=== PATIENT | male | born 1955 | race Caucasian/White ===

== ENCOUNTER 2018-06-04 10:13 | Emergency (ER) | payer OTHER, SELFPAY ==
[2018-06-04 10:37] VITALS: BP 189/95; PULSE 90; RESP 14; TEMP 36.2; O2SAT 96
--- NOTE | 2018-06-04 10:40 | DI.RAD.S_ITS ---
PROCEDURE: XR HAND LT MIN 3V INDICATIONS: left thumb injury TECHNIQUE: 3 views of the hand(s) acquired. COMPARISON: None. FINDINGS: Bones: Fracture of the distal tuft of the thumb. IMPRESSION: Thumb distal tuft fracture. Dictated by: Charlie Lin M.D. on 06/04/2018 at 11:41 Approved by: Charlie Lin M.D. on 06/04/2018 at 11:43
[2018-06-04] MEDS: TET,DIPH,PERTUSS(ACELL),VAC/PF 0.5 ML SYRINGE IM (10:56)
[2018-06-04 11:36] VITALS: BP 145/85; PULSE 71; RESP 20; O2SAT 93
--- NOTE | 2018-06-04 11:38 | ED.UPPEXIN ---
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 Patient states he had a glove on the globe was pulled off. He has a lacerations to both sides of the thumb. Patient does not have any numbness or weakness. He is able to flex and straighten. Patient does not know his tetanus up-to-date. He denies any major medical issues. He does not take any aspirin regularly or any blood thinners. States he used to take medication for blood pressure. Related Data Home Medications Medication Instructions Recorded Confirmed naproxen sodium [Aleve] 2 tab PO QDAY #0 06/05/17 05/03/18 Previous Rx's Medication Instructions Recorded amlodipine 5 mg tablet 5 mg PO QDAY #90 tab 05/03/18 cephalexin [Keflex] 500 mg PO QID #40 cap 06/04/18 Allergies Allergy/AdvReac Type Severity Reaction Status Date / Time No Known Drug Allergies Allergy Verified 05/03/18 14:28 Review of Systems Review of Systems All systems reviewed & are unremarkable except as noted in HPI and below Constitutional Denies weakness Musculoskeletal Reports as per HPI, Denies limited range of motion, Denies numbness, Denies stiffness and Denies tingling Integumentary/Breasts Denies rash, Denies unusual bruising and Reports wounds (Laceration x2) Neurologic Denies numbness, Denies tingling and Denies weakness [facility] Medical History Hyperlipidemia (Chronic) Hypertension (Chronic) Skin cancer (Chronic ~2009) Surgical History History of tonsillectomy (Resolved) Family History Mother Age: 86 Diabetes mellitus Father Cancer Tobacco use Social History Smoking Status: Never smoker Exam Narrative Exam Narrative: GENERAL: Alert and oriented x three, well-nourished, well-appearing male in mild distress. HEENT: Head normocephalic, atraumatic, EOMI, pupils reactive, face symmetric, moist mucous membranes NECK: Supple, full range of motion CARDIOVASCULAR: Regular rate and rhythm without murmurs, rubs or gallops. RESPIRATORY: Breath sounds equal bilaterally, no wheezes rales or rhonchi. EXTREMITIES: Normal range of motion, patient has a 1/2 cm laceration with avulsion of the central portion of skin on the distal pad of the thumb. Patient has good sensation at the end. He has cap refill less than 2 sec. Able to fully flex the thumb at all joints and straighten. Patient also has a laceration over the dorsum of the 1st metacarpal joint that is 2.1 cm and in AC shape. Goes into the subcutaneous but no tendon involvement is noted. Patient also has full range of motion with no deformity. Patient has 2+ radial pulse. He has no other laceration or injuries noted to the hand. NEUROLOGICAL: Cranial nerves II through XII grossly intact. Moving all extremities. Normal gait. SKIN: Warm, dry, no petechiae, no rashes or lesions. Initial Vital Signs Initial Vital Signs: Vital Signs Temperature 97.1 F L 06/04/18 10:37 Pulse Rate 90 06/04/18 10:37 Respiratory Rate 14 06/04/18 10:37 Blood Pressure 189/95 H 06/04/18 10:37 Pulse Oximetry 96 06/04/18 10:37 Procedures Laceration Repair Laceration 1: Site: hand (Left thumb, dorsum over the joint) Size (cm): 2.1 Description: flap and contaminated Depth: simple, single layer Local Anesthetic: lidocaine 1% Amount of anesthesia used (mL): 2 Pre-repair: wound explored, irrigated extensively and deep structures intact Skin layer closed with: nylon Size (cm): 4-0 Number of sutures: 7 Laceration 2: Site: hand (Left hand pad of the thumb) Size (cm): 2 Description: linear (With avulsion of central strip of skin) Depth: simple, single layer Local Anesthetic: lidocaine 1% Amount of anesthesia used (mL): 1.5 Pre-repair: wound explored, irrigated extensively, deep structures intact and wound margins revised Skin layer closed with: nylon Size (cm): 4-0 Number of sutures: 3 Technique: simple, interrupted Course Orders Ordered: ED Orders 06/04/18 10:40 XR hand LT min 3V Stat Discontinued Medications Acetaminophen (Tylenol) 650 mg PO NOW ONE Stop: 06/04/18 12:33 Last Admin: 06/04/18 12:58 Dose: 650 mg Cephalexin HCl (Keflex) 500 mg PO NOW ONE Stop: 06/04/18 12:33 Last Admin: 06/04/18 12:58 Dose: 500 mg Diphtheria/Tetanus/Acell Pertussis (Adacel) 0.5 ml IM .ONCE ONE Stop: 06/04/18 10:39 Last Admin: 06/04/18 10:56 Dose: 0.5 ml Vital Signs - 8 hr 06/04/18 10:37 06/04/18 11:36 06/04/18 12:43 Temperature 97.1 F L Pulse Rate 90 71 77 Respiratory Rate 14 20 19 Blood Pressure 189/95 H Blood Pressure [Right Arm] 145/85 H 181/80 H Pulse Oximetry 96 93 98 [facility] - Extremity Injury (Upper) Imaging Data hand xray: Radiologist's impression: [place] [address] XRay Report Signed Patient: Roger Briones MR#: [id number] : 1955 Acct:[id number] Age/Sex: 62 / M Date of Service: 06/04/18 Loc: ED Accession Number: [id number] Procedure: XR hand LT min 3V Ordering Provider: Daina Sierra D.O. PROCEDURE: XR HAND LT MIN 3V INDICATIONS: left thumb injury TECHNIQUE: 3 views of the hand(s) acquired. COMPARISON: None. FINDINGS: Bones: Fracture of the distal tuft of the thumb. IMPRESSION: Thumb distal tuft fracture. Dictated by: Charlie Lin M.D. on 06/04/2018 at 11:41 Approved by: Charlie Lin M.D. on 06/04/2018 at 11:43 [facility] Narrative Medical decision making narrative: Patient's imaging shows a distal tuft fracture. Patient is technically an open fracture based on laceration the end of the thumb. Was started on Keflex orally. Patient lacerations were sewn. On the distal thumb he was missing a portion of the skin so is unable to completely close but was drawn fairly close together. Patient is aware that he will need to have some closure by secondary intention. He was also placed in a splint to help prevent any flexion at the proximal joint. Plan to follow-up, was given clear instructions about signs and risks of infection and reasons to return. Patient's tetanus was updated in the ED. He will plan to take Aleve at home he defers any narcotic pain. Patient sees Dr. Pandya and plan to follow up to remove. Discharge Plan Departure Patient Disposition: Home Clinical Impression: Fracture of distal phalanx of finger, Laceration of finger Discharge Date/Time: 06/04/18 13:32 Interventions: ED Discharge Assessment Last Done: 06/04/18 13:27 Instructions: DI for Laceration Repair -- Finger Activity Restrictions/Additional Instructions: Wound Care: Keep wound(s) clean and dry. Wash daily with soap and water only. Continue using split until cleared by your physician Do not use over the counter products (alcohol or peroxide)on the wounds unless instructed by a physician. If wound condition worsens (increased/expanding redness, developing fluid blisters, or worsening pain), either contact your doctor for an urgent re-assessment , or return to the Emergency Department. Return to the Emergency Department for any new or worsening symptoms. Return to the ED, urgent care, or vist a primary care doctor for removal or suture or marta in 7-10 days. Return if fever greater than 100.4 Fahrenheit, increased swelling, increasing pain or worsening symptoms such as increased discharge or spreading redness. Loss of sensation, new weakness, numbness, pallor or cyanosis. Prescriptions: New cephalexin [Keflex] 500 mg capsule 500 mg PO QID Qty: 40 RF: 0 No Action naproxen sodium [Aleve] 220 MG tablet 2 tab PO QDAY Qty: 0 RF: 0 amlodipine [Norvasc] 5 mg tablet 5 mg PO QDAY Qty: 90 RF: 3 Referrals: Jesús Deluca MD [Primary Care Provider] - Rhiannon Pandya DO [Physician] - Renetta Vazquez MD [Physician] -
--- NOTE | 2018-06-04 12:41 | ED_ITS ---
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 Patient states he had a glove on the globe was pulled off. He has a lacerations to both sides of the thumb. Patient does not have any numbness or weakness. He is able to flex and straighten. Patient does not know his tetanus up-to-date. He denies any major medical issues. He does not take any aspirin regularly or any blood thinners. States he used to take medication for blood pressure. Related Data Home Medications Medication Instructions Recorded Confirmed naproxen sodium [Aleve] 2 tab PO QDAY #0 06/05/17 05/03/18 Previous Rx's Medication Instructions Recorded amlodipine 5 mg tablet 5 mg PO QDAY #90 tab 05/03/18 cephalexin [Keflex] 500 mg PO QID #40 cap 06/04/18 Allergies Allergy/AdvReac Type Severity Reaction Status Date / Time No Known Drug Allergies Allergy Verified 05/03/18 14:28 Review of Systems Review of Systems All systems reviewed & are unremarkable except as noted in HPI and below Constitutional Denies weakness Musculoskeletal Reports as per HPI, Denies limited range of motion, Denies numbness, Denies stiffness and Denies tingling Integumentary/Breasts Denies rash, Denies unusual bruising and Reports wounds (Laceration x2) Neurologic Denies numbness, Denies tingling and Denies weakness [facility] Medical History Hyperlipidemia (Chronic) Hypertension (Chronic) Skin cancer (Chronic ~2009) Surgical History History of tonsillectomy (Resolved) Family History Mother Age: 86 Diabetes mellitus Father Cancer Tobacco use Social History Smoking Status: Never smoker Exam Narrative Exam Narrative: GENERAL: Alert and oriented x three, well-nourished, well- appearing male in mild distress. HEENT: Head normocephalic, atraumatic, EOMI, pupils reactive, face symmetric, moist mucous membranes NECK: Supple, full range of motion CARDIOVASCULAR: Regular rate and rhythm without murmurs, rubs or gallops. RESPIRATORY: Breath sounds equal bilaterally, no wheezes rales or rhonchi. EXTREMITIES: Normal range of motion, patient has a 1/2 cm laceration with avulsion of the central portion of skin on the distal pad of the thumb. Patient has good sensation at the end. He has cap refill less than 2 sec. Able to fully flex the thumb at all joints and straighten. Patient also has a laceration over the dorsum of the 1st metacarpal joint that is 2.1 cm and in AC shape. Goes into the subcutaneous but no tendon involvement is noted. Patient also has full range of motion with no deformity. Patient has 2+ radial pulse. He has no other laceration or injuries noted to the hand. NEUROLOGICAL: Cranial nerves II through XII grossly intact. Moving all extremities. Normal gait. SKIN: Warm, dry, no petechiae, no rashes or lesions. Initial Vital Signs Initial Vital Signs: Vital Signs Temperature 97.1 F L 06/04/18 10:37 Pulse Rate 90 06/04/18 10:37 Respiratory Rate 14 06/04/18 10:37 Blood Pressure 189/95 H 06/04/18 10:37 Pulse Oximetry 96 06/04/18 10:37 Procedures Laceration Repair Laceration 1: Site: hand (Left thumb, dorsum over the joint) Size (cm): 2.1 Description: flap and contaminated Depth: simple, single layer Local Anesthetic: lidocaine 1% Amount of anesthesia used (mL): 2 Pre-repair: wound explored, irrigated extensively and deep structures intact Skin layer closed with: nylon Size (cm): 4-0 Number of sutures: 7 Laceration 2: Site: hand (Left hand pad of the thumb) Size (cm): 2 Description: linear (With avulsion of central strip of skin) Depth: simple, single layer Local Anesthetic: lidocaine 1% Amount of anesthesia used (mL): 1.5 Pre-repair: wound explored, irrigated extensively, deep structures intact and wound margins revised Skin layer closed with: nylon Size (cm): 4-0 Number of sutures: 3 Technique: simple, interrupted Course Orders Ordered: ED Orders 06/04/18 10:40 XR hand LT min 3V Stat Discontinued Medications Acetaminophen (Tylenol) 650 mg PO NOW ONE Stop: 06/04/18 12:33 Last Admin: 06/04/18 12:58 Dose: 650 mg Cephalexin HCl (Keflex) 500 mg PO NOW ONE Stop: 06/04/18 12:33 Last Admin: 06/04/18 12:58 Dose: 500 mg Diphtheria/Tetanus/Acell Pertussis (Adacel) 0.5 ml IM .ONCE ONE Stop: 06/04/18 10:39 Last Admin: 06/04/18 10:56 Dose: 0.5 ml Vital Signs - 8 hr 06/04/18 10:37 06/04/18 11:36 06/04/18 12:43 Temperature 97.1 F L Pulse Rate 90 71 77 Respiratory Rate 14 20 19 Blood Pressure 189/95 H Blood Pressure [Right Arm] 145/85 H 181/80 H Pulse Oximetry 96 93 98 [facility] - Extremity Injury (Upper) Imaging Data hand xray: Radiologist's impression: [place] [address] XRay Report Signed Patient: Roger Briones MR#: [id number] : 1955 Acct:[id number] Age/Sex: 62 / M Date of Service: 06/04/18 Loc: ED Accession Number: [id number] Procedure: XR hand LT min 3V Ordering Provider: Daina Sierra D.O. PROCEDURE: XR HAND LT MIN 3V INDICATIONS: left thumb injury TECHNIQUE: 3 views of the hand(s) acquired. COMPARISON: None. FINDINGS: Bones: Fracture of the distal tuft of the thumb. IMPRESSION: Thumb distal tuft fracture. Dictated by: Charlie Lin M.D. on 06/04/2018 at 11:41 Approved by: Charlie Lin M.D. on 06/04/2018 at 11:43 [facility] Narrative Medical decision making narrative: Patient's imaging shows a distal tuft fracture. Patient is technically an open fracture based on laceration the end of the thumb. Was started on Keflex orally. Patient lacerations were sewn. On the distal thumb he was missing a portion of the skin so is unable to completely close but was drawn fairly close together. Patient is aware that he will need to have some closure by secondary intention. He was also placed in a splint to help prevent any flexion at the proximal joint. Plan to follow-up, was given clear instructions about signs and risks of infection and reasons to return. Patient's tetanus was updated in the ED. He will plan to take Aleve at home he defers any narcotic pain. Patient sees Dr. Pandya and plan to follow up to remove. Discharge Plan Departure Patient Disposition: Home Clinical Impression: Fracture of distal phalanx of finger, Laceration of finger Discharge Date/Time: 06/04/18 13:32 Interventions: ED Discharge Assessment Last Done: 06/04/18 13:27 Instructions: DI for Laceration Repair -- Finger Activity Restrictions/Additional Instructions: Wound Care: Keep wound(s) clean and dry. Wash daily with soap and water only. Continue using split until cleared by your physician Do not use over the counter products (alcohol or peroxide)on the wounds unless instructed by a physician. If wound condition worsens (increased/expanding redness, developing fluid blisters, or worsening pain), either contact your doctor for an urgent re- assessment , or return to the Emergency Department. Return to the Emergency Department for any new or worsening symptoms. Return to the ED, urgent care, or vist a primary care doctor for removal or suture or marta in 7-10 days. Return if fever greater than 100.4 Fahrenheit, increased swelling, increasing pain or worsening symptoms such as increased discharge or spreading redness. Loss of sensation, new weakness, numbness, pallor or cyanosis. Prescriptions: New cephalexin [Keflex] 500 mg capsule 500 mg PO QID Qty: 40 RF: 0 No Action naproxen sodium [Aleve] 220 MG tablet 2 tab PO QDAY Qty: 0 RF: 0 amlodipine [Norvasc] 5 mg tablet 5 mg PO QDAY Qty: 90 RF: 3 Referrals: Jesús Deluca MD [Primary Care Provider] - Rhiannon Pandya DO [Physician] - Renetta Vazquez MD [Physician] -
[2018-06-04 12:43] VITALS: BP 181/80; PULSE 77; RESP 19; O2SAT 98
[2018-06-04] MEDS: ACETAMINOPHEN 325 MG TABLET 650 MG PO (12:58)
[2018-06-04] MEDS: cephALEXin 250 MG CAPSULE 500 MG PO (12:58)
== END 2018-06-04 13:32 | disposition home or self-care (01) ==
PROVIDERS: Emergency Provider Emergency Medicine; Family Provider Family Medicine; PCP Family Medicine
DX: S62.639A Displaced fracture of distal phalanx of unspecified finger, initial encounter for closed fracture (principal); S61.211A Laceration without foreign body of left index finger without damage to nail, initial encounter; W29.8XXA Contact with other powered hand tools and household machinery, initial encounter
CPT/HCPCS: 12002; 73130; 90471; 99283; 90715

== ENCOUNTER → 2018-10-23 22:09 | Outpatient (ROUT) | payer OTHER, SELFPAY ==
[2018-10-23 22:45] LABS: Alanine Aminotransferase 33 IU/L (21-72); Albumin 4.1 g/dL (3.5-5.0); Albumin Globulin Ratio 1.4 (1.0-2.8); Alkaline Phosphatase 77 U/L (38-126); Aspartate Aminotransferase 41 IU/L (17-59); BUN Creatinine Ratio 26.3 (6-22); Bilirubin Total 0.9 mg/dL (0.2-1.3); Blood Urea Nitrogen 21 mg/dL (9-20); C-Reactive Protein Quant 0.9 mg/dL (<1.0); Calcium 9.5 mg/dL (8.4-10.2); Carbon Dioxide 31 mmol/L (22-32); Chloride 97 mmol/L (98-107); Cholesterol 200 mg/dL (140-199); Estimated Glomerular Filt Rate > 60.0 mL/min (>60); Glucose 218 mg/dL (80-110); HDL Cholesterol 31 mg/dL (40-60); HEMOLYSIS < 15 (0-50); LDL Cholesterol Calculated 110 mg/dL (<100); Potassium 4.2 mmol/L (3.4-5.1); Sodium 135 mmol/L (137-145); Total Protein 7.1 g/dL (6.3-8.2); Triglycerides 296 mg/dL (35-150)
[2018-10-23 22:51] LABS: Add Manual Diff / Slide Review NO; Basophils Absolute Auto 0 /uL (0-100); Basophils Percent Auto 0.5 % (0-2); Eosinophils Absolute Auto 200 /uL (0-450); Eosinophils Percent Auto 2.8 % (2-4); Hematocrit 45.7 % (41-53); Hemoglobin 15.6 g/dL (13.5-17.5); Lymphocytes Absolute Auto 1900 /uL (1100-4500); Lymphocytes Percent Auto 21.8 % (25-40); Mean Corpuscular Hemoglobin 29.9 PG (26-34); Mean Corpuscular Volume 87.9 fL (80-100); Monocytes Absolute Auto 500 /uL (0-900); Monocytes Percent Auto 5.7 % (3-14); Neutrophils Absolute Auto 6200 /uL (1500-7000); Neutrophils Percent Auto 69.2 % (50-75); Platelet Count 306 X10^3/uL (150-400); White Blood Cell Count 8.9 X10^3/uL (4.5-11.0)
[2018-10-23 22:54] LABS: Hemoglobin A1C% w Est Avg Glu 10.2 % (4.0-6.0)
== END ==
PROVIDERS: PCP Family Medicine; Visit Provider Nurse Practitioner Acute Care
DX: R73.01 Impaired fasting glucose (principal); I10 Essential (primary) hypertension; Z82.49 Family history of ischemic heart disease and other diseases of the circulatory system
CPT/HCPCS: 80053; 80061; 83036; 85025; 86140

== ENCOUNTER → 2018-11-01 14:55 | Outpatient (CLI) | payer OTHER, SELFPAY ==
--- NOTE | 2018-11-01 | DI.US.S_ITS ---
PROCEDURE: US CAROTID DOPPLER BI INDICATIONS: RIGHT CAROTID BRUIT TECHNIQUE: Color and pulse Doppler interrogation was performed of both carotid systems, with image documentation and velocity measurements. COMPARISON: None. FINDINGS: Stenosis calculations are based on SRU (Society of Radiologists in Ultrasound) criteria. Right side: Brachial blood pressure: 134/70 mm Hg. Common carotid artery peak systolic velocity: 35 cm/sec. Internal carotid artery peak systolic velocity: 96 cm/sec. Internal carotid artery end diastolic velocity: 21 cm/sec. External carotid artery peak systolic velocity: 236 cm/sec. ICA/CCA peak systolic ratio: 0.7. Persaud scale imaging description: Mild soft plaque Percent internal carotid artery stenosis: Less than 50% stenosis. Vertebral artery: Flow direction is antegrade. Atherosclerotic plaque appears partially present within the lumen of the right vertebral artery. Left side: Brachial blood pressure: 140/75 mm Hg. Common carotid artery peak systolic velocity: 111 cm/sec. Internal carotid artery peak systolic velocity: 67 cm/sec. Internal carotid artery end diastolic velocity: 26 cm/sec. External carotid artery peak systolic velocity: 100 cm/sec. ICA/CCA peak systolic ratio: 0.6. Persaud scale imaging description: Mild calcific and soft plaque Percent internal carotid artery stenosis: Less than 50% stenosis. Vertebral artery: Flow direction is antegrade. IMPRESSION: Less than 50% stenosis within the proximal internal carotid arteries bilaterally. Mild soft plaque within the proximal right vertebral artery is incidentally noted and vertebral arterial flow is antegrade in direction and normal in phasicity. Dictated by: Bryan Porras M.D. on 11/01/2018 at 17:10 Approved by: Bryan Porras M.D. on 11/01/2018 at 17:13
== END ==
PROVIDERS: PCP Family Medicine; Visit Provider Nurse Practitioner Acute Care
DX: I65.23 Occlusion and stenosis of bilateral carotid arteries (principal); I67.2 Cerebral atherosclerosis; R09.89 Other specified symptoms and signs involving the circulatory and respiratory systems
CPT/HCPCS: 93880

== ENCOUNTER → 2020-08-10 06:43 | Outpatient (CLI) | payer MEDICARE, SELFPAY ==
[2020-08-10 08:12] LABS: Add Manual Diff / Slide Review NO; Basophils Absolute Auto 100 /uL (0-100); Basophils Percent Auto 2.2 % (0-2); Eosinophils Absolute Auto 400 /uL (0-450); Eosinophils Percent Auto 7.5 % (2-4); Hemoglobin 14.9 g/dL (13.5-17.5); Lymphocytes Absolute Auto 1600 /uL (1100-4500); Lymphocytes Percent Auto 28.2 % (25-40); Mean Corpuscular HGB Conc 33.8 % (30-36); Mean Corpuscular Hemoglobin 29.7 PG (26-34); Mean Corpuscular Volume 87.8 fL (80-100); Monocytes Absolute Auto 400 /uL (0-900); Monocytes Percent Auto 7.8 % (3-14); Neutrophils Absolute Auto 3100 /uL (1500-7000); Neutrophils Percent Auto 54.3 % (50-75); Platelet Count 276 X10^3/uL (150-400); Red Blood Cell Count 5.01 X10^6/uL (4.5-5.9); Red Cell Distribution Width 12.9 % (11.6-14.8); White Blood Cell Count 5.7 X10^3/uL (4.5-11.0)
[2020-08-10 08:27] LABS: Alanine Aminotransferase 26 IU/L (<50); Albumin 4.1 g/dL (3.5-5.0); Albumin Globulin Ratio 1.3 (1.0-2.8); Alkaline Phosphatase 72 U/L (38-126); Aspartate Aminotransferase 24 IU/L (17-59); BUN Creatinine Ratio 23.9 (6-22); Bilirubin Total 0.8 mg/dL (0.2-1.3); Blood Urea Nitrogen 21 mg/dL (9-20); Calcium 8.9 mg/dL (8.4-10.2); Carbon Dioxide 32 mmol/L (22-32); Chloride 96 mmol/L (98-107); Cholesterol 206 mg/dL (140-199); Estimated Glomerular Filt Rate > 60.0 mL/min (>60); Globulin 3.2 g/dL (1.7-4.1); Glucose 249 mg/dL (80-110); HDL Cholesterol 33 mg/dL (40-60); HEMOLYSIS < 15 (0-50); LDL Cholesterol Calculated 140 mg/dL (<100); Potassium 4.4 mmol/L (3.4-5.1); Sodium 135 mmol/L (137-145); Total Protein 7.3 g/dL (6.3-8.2); Triglycerides 166 mg/dL (35-150)
[2020-08-10 08:53] LABS: Prostate Specific Antigen Scrn 1.79 ng/mL (0.1-4.0)
[2020-08-10 08:55] LABS: TSH w/ Reflex to FT4 1.75 uIU/mL (0.47-4.68)
== END ==
PROVIDERS: PCP Family Medicine; Referring Provider Family Medicine; Visit Provider Family Medicine
DX: E78.5 Hyperlipidemia, unspecified (principal); I10 Essential (primary) hypertension; Z12.5 Encounter for screening for malignant neoplasm of prostate
CPT/HCPCS: 36415; 80053; 80061; 84443; 85025; G0103

== ENCOUNTER → 2020-11-15 07:11 | Outpatient (CLI) | payer OTHER, SELFPAY ==
[2020-11-15 08:28] LABS: Hemoglobin A1C% w Est Avg Glu 8.6 % (4.0-6.0)
[2020-11-15 08:41] LABS: Blood Urea Nitrogen 16 mg/dL (9-20); Calcium 9.6 mg/dL (8.4-10.2); Carbon Dioxide 30 mmol/L (22-32); Chloride 98 mmol/L (98-107); Estimated Glomerular Filt Rate > 60.0 mL/min (>60); Glucose 181 mg/dL (80-110); HEMOLYSIS < 15 (0-50); Potassium 4.7 mmol/L (3.4-5.1); Sodium 136 mmol/L (137-145)
== END ==
PROVIDERS: PCP Family Medicine; Referring Provider Family Medicine; Visit Provider Family Medicine
DX: E11.9 Type 2 diabetes mellitus without complications (principal); I10 Essential (primary) hypertension
CPT/HCPCS: 36415; 80048; 83036

== ENCOUNTER 2021-09-22 09:07 | Emergency (ER) | payer OTHER, SELFPAY ==
[2021-09-22 09:21] VITALS: BP 163/74; PULSE 69; RESP 15; TEMP 36.1; O2SAT 97
--- NOTE | 2021-09-22 09:23 | DI.RAD.S_ITS ---
PROCEDURE: XR HAND RT MIN 3V INDICATIONS: hand swelling TECHNIQUE: 3 views of the hand(s) acquired. COMPARISON: [facility], CR, XR HAND LT MIN 3V, 06/04/2018, 11:02. FINDINGS: Bones: No fractures or dislocations. Carpal bones are normally aligned. No suspicious bony lesions. Soft tissues: No suspicious soft tissue calcifications. No soft tissue gas or radiopaque foreign bodies. Soft tissue swelling. IMPRESSION: No evidence acute bony abnormality of the right hand. No soft tissue gas. No radiopaque foreign body. Dictated by: Steve Graham M.D. on 09/22/2021 at 9:32 Approved by: Steve Graham M.D. on 09/22/2021 at 9:41
--- NOTE | 2021-09-22 13:13 | ED.EXTPRO ---
HPI - Extremity Problem <Aiden Lawton PA-C - Last Filed: 09/22/21 19:45> General Chief complaint: Extremity Problem,Nontraumatic Stated complaint: Right hand swollen for a week Time Seen by Provider: 09/22/21 12:54 Source: patient Mode of arrival: Ambulatory History of Present Illness HPI Narrative: Patient is a 65-year-old male presenting to the emergency department today for an evaluation right hand swelling. Patient explains that he has experienced swelling in his right upper extremity intermittently for quite some time, stating that it often goes away on its own after a couple of days. He explains that the most recent episode swelling began 1 week ago and has not improved. Of note, patient denies significant pain in the hand and denies any recent falls or injuries that could explain the swelling. No fevers, chills, chest pain, cough, shortness of breath, nausea, vomiting, diarrhea, constipation, abdominal pain, dysuria, hematuria, numbness and tingling in the upper extremities, or any other concerning symptoms reported. No further concerns were voiced at this time. Related Data Previous Rx's Medication Instructions Recorded amlodipine 5 mg tablet See Rx Instructions .ROUTE 04/06/21 .COMPLEX #90 tab metformin 1,000 mg tablet 1,000 mg PO BID #180 tab 06/14/21 Allergies Allergy/AdvReac Type Severity Reaction Status Date / Time No Known Drug Allergies Allergy Verified 09/22/21 09:21 Review of Systems <Aiden Lawton PA-C - Last Filed: 09/22/21 19:45> Constitutional Constitutional: Denies chills, Denies fatigue, Denies fever(s), Denies frequent falls, Denies lethargy and Denies weakness Eyes Eyes: Denies loss of vision ENT Ears, Nose, Mouth, and Throat: Denies dizziness and Denies neck pain Cardiovascular Cardiovascular: Denies chest pain, Denies irregular heart rhythm, Denies lightheadedness, Denies palpitations, Denies dyspnea, Denies dyspnea on exertion and Denies orthopnea Respiratory Respiratory: Denies cough, Denies dyspnea, Denies dyspnea on exertion and Denies wheezing Gastrointestinal Gastrointestinal: Denies abdominal pain, Denies change in bowel habits, Denies diarrhea, Denies nausea and Denies vomiting Genitourinary Genitourinary: Denies hematuria, Denies flank pain, Denies urinary incontinence and Denies urinary urgency Musculoskeletal Musculoskeletal: Denies back pain, Reports joint swelling (Right hand), Denies muscle weakness, Denies neck pain, Denies numbness and Denies tingling Integumentary/Breasts Skin/Breast: Denies pruritus, Denies erythema, Denies rash and Denies wounds Neurologic Neurologic: Denies behavioral changes, Denies confusion, Denies dizziness, Denies frequent falls, Denies loss of vision, Denies numbness, Denies tingling and Denies weakness Psychiatric Psychiatric: Denies behavioral changes and Denies confusion Endocrine Endocrine: Denies fatigue and Denies palpitations Allergic/Immunologic Allergic/Immunologic: Denies wheezing Patient History <Aiden Lawton PA-C - Last Filed: 09/22/21 19:45> Medical History Arthralgia Diabetes mellitus Essential hypertension Hyperlipidemia Hypertension Kidney stone on right side Left corneal abrasion Obesity Skin cancer (~2009) Surgical History History of tonsillectomy Family History Mother Age: 89 Diabetes mellitus Congestive heart failure Hyperlipidemia Hypertension CAD (coronary artery disease) Father Cancer Tobacco use Social History Smoking Status: Never smoker Smoking Status: Never smoker alcohol intake frequency: holidays/special occasions only Substance Use Type: does not use Exam <Aiden Lawton PA-C - Last Filed: 09/22/21 19:45> Narrative Exam Narrative: GENERAL: 65 year old patient appears stated age. Well-developed patient, in no acute distress. HEAD: Atraumatic. Normocephalic. EYES: Pupils equal round and reactive. Extraocular motions intact. No scleral icterus. No injection or drainage. ENT: Nose without bleeding, purulent drainage. Throat without erythema, tonsillar hypertrophy or exudate. Airway patent. NECK: Trachea midline. Non tender CARDIOVASCULAR: Regular rate and rhythm without murmurs, gallops, or rubs. RESPIRATORY: Clear to auscultation. Breath sounds equal bilaterally. No wheezes, rales, or rhonchi. GASTROINTESTINAL: Abdomen soft, non-tender, nondistended. EXTREMITIES: No edema or joint tenderness. Mild swelling noted generally about the right hand with no significant areas of tenderness to palpation. No appreciable overlying ecchymosis or erythema. Gross motor function intact throughout the bilateral upper extremities. Good sensation light touch appreciated throughout the bilateral upper extremities. Radial pulse palpated on the right. Positive Tinel sign when tapping over the median nerve of the right upper extremity. Capillary refill less than 2 seconds. BACK: Nontender without deformity or crepitance. No flank tenderness. NEURO: AOx3. SKIN: No rash or erythema of visible areas Initial Vital Signs Initial Vital Signs: Vital Signs Temperature 97.0 F L 09/22/21 09:21 Pulse Rate 69 09/22/21 09:21 Respiratory Rate 15 09/22/21 09:21 Blood Pressure 163/74 H 09/22/21 09:21 Pulse Oximetry 97 09/22/21 09:21 Course <Aiden Lawton PA-C - Last Filed: 09/22/21 19:45> Course Course Narrative: X-ray of right hand obtained. Orders Ordered: ED Orders 09/22/21 09:23 XR hand RT min 3V Stat Vital Signs Vital signs: Vital Signs - 8 hr 09/22/21 09:21 Temperature 97.0 F L Pulse Rate 69 Respiratory Rate 15 Blood Pressure 163/74 H Pulse Oximetry 97 MDM - Extremity (Nontraumatic) <Aiden Lawton PA-C - Last Filed: 09/22/21 19:45> Imaging Data Extremity x-ray #1: Radiologist's Impression: PROCEDURE:? XR HAND RT MIN 3V ? INDICATIONS:? hand swelling ? TECHNIQUE:? 3 views of the hand(s) acquired.? ? COMPARISON:? [facility], CR, XR HAND LT MIN 3V, 06/04/2018, 11:02. ? FINDINGS:? ? Bones:? No fractures or dislocations.? Carpal bones are normally aligned.? No suspicious bony lesions.? ? Soft tissues:? No suspicious soft tissue calcifications.? No soft tissue gas or radiopaque foreign bodies.? Soft tissue swelling. ? ? IMPRESSION:? No evidence acute bony abnormality of the right hand.? No soft tissue gas.? No radiopaque foreign body. ? ? Dictated by: Steve Graham M.D. on 09/22/2021 at 9:32 ? ? Approved by: Steve Graham M.D. on 09/22/2021 at 9:41 ? MDM Narrative Medical decision making narrative: Differential diagnosis to consider but not limited to fracture versus dislocation versus sprain versus strain. I discussed results of x-ray imaging and physical exam findings with patient informed him that no significant acute abnormality was identified today. I informed the patient that the paresthesias that he experiences during Tinel test could be associated with the generalized swelling or could be associated with a nerve entrapment. I informed the patient that I would be setting up referral for him to have orthopedic follow-up for further evaluation and management. Patient expresses understanding and agrees to plan. He states at this time the is comfortable being discharged home. Patient is stable for discharge. Strict return precautions were discussed with the patient prior to discharge. Discharge Plan Departure Patient Disposition: Home Clinical Impression: Swelling of right hand Instructions: DI for Arm Pain Activity Restrictions/Additional Instructions: *You have been diagnosed with right hand swelling *What to do: *Please continue to take your regular medications as directed. [ ] New medication prescriptions sent to your pharmacy: [ ] [ ] New medication written as a paper prescription [X] No new medications given You were evaluated in the emergency department today for right hand swelling. X-ray imaging obtained in the emergency department today did not show any signs of acute abnormalities such as fracture or dislocation. I have set up a referral for orthopedic follow-up, their office should be reaching out to you to set up an appointment. I recommend following up with primary care provider within the next 2-3 days further evaluation and management. Do not hesitate to return to the emergency department if you experience worsening swelling, increasing pain, loss of sensation in the right hand, or any other concerning symptoms. *Please follow up with your primary care provider in 2-3 days, call for an appointment. Let them know you were seen in the Emergency Department and that we ask that you be seen in follow up. We will electronically transmit a record of today's note if your PCP is in our system *If you do not have a primary care provider please contact the [facility] Resource line at [phone]. They will ask some questions about your medical history and help get you set up with a doctor in the community. *Return to Emergency Department if you should have any new, worsening or concerning symptoms, such as fever greater than 101 F, shaking chills, worsening pain, persistent vomiting or other bothersome symptoms. Prescriptions: No Action amlodipine 5 mg tablet See Rx Instructions .ROUTE .COMPLEX Qty: 90 0RF Dose Instruction: TAKE ONE TABLET BY MOUTH ONE TIME DAILY Rx Instructions: TAKE ONE TABLET BY MOUTH ONE TIME DAILY metformin 1,000 mg tablet 1,000 mg PO BID Qty: 180 1RF Referrals: John Shi MD [Physician] - 5-7 days Rhiannon Pandya DO [Primary Care Provider] -
== END 2021-09-22 13:30 | disposition home or self-care (01) ==
PROVIDERS: Emergency Provider Physician Assistant; PCP Family Medicine
DX: M79.89 Other specified soft tissue disorders (principal)
CPT/HCPCS: 73130; 99281; 99283

== ENCOUNTER → 2021-11-07 07:47 | Outpatient (CLI) | payer OTHER, SELFPAY ==
--- NOTE | 2021-11-07 07:49 | DI.ECHO.S_ITS ---
[facility] +---------+ : : [address] : : : : [phone] : : : : Phone: [phone]+ Echocardiogram Report + + :Name: ROGER FORTUNE Study Date: 11/07/2021 Height: 70 in : :[facility] ReadingLocation: Weight: 205 lb : : Gender: Male BSA: 2.1 m2 : :: 1955 Age: 65 yrs BP: 156/92 mmHg: :Reason For Study: HTN : :Ordering Physician: SAI, : :ALYSSA Performed By: Brice Aviles : :Referring: ALYSSA STOVALL : + + Interpretation Summary Left ventricular wall thickness is mild-moderately increased. The ejection fraction is estimated to be 45-50%. There is a distal inferolateral and basal inferior hypokinesis. Diastolic function is indeterminate. The right ventricle is normal in size and function. There is mild mitral regurgitation. There is mild aortic regurgitation. Pulmonary artery pressures cannot be estimated because of the lack of a measurable TR jet velocity. Result discussed with SIDNEY Glover at Dr. Roger Medeiros's office. Procedure: A two-dimensional transthoracic echocardiogram with color flow and Doppler was performed. The study quality was technically adequate. There is no prior echocardiogram noted for this patient. Left Ventricle: Left ventricular wall thickness is mild-moderately increased. The left ventricle is normal in size. Left ventricular systolic function is mildly reduced. The ejection fraction is estimated to be 45-50%. There is a distal inferolateral and basal inferior hypokinesis. Diastolic function could not be accurately assessed due to unobtainable data. Right Ventricle: The right ventricle is normal in size and function. Atria: Both atria are normal in size. The interatrial septum grossly appears intact with no obvious evidence for an atrial septal defect. Mitral Valve: There is mild mitral annular calcification. There is mild mitral regurgitation. Aortic Valve: There is mild aortic valve sclerosis. There is no aortic valve stenosis. There is mild aortic regurgitation. Tricuspid Valve: The tricuspid valve is normal in structure and function. No tricuspid regurgitation. Pulmonary artery pressures cannot be estimated because of the lack of a measurable TR jet velocity. Pulmonic Valve: The pulmonic valve is not well seen, but is grossly normal. There is trace pulmonic regurgitation. Great Vessels: The aortic root is normal size. The dimensions of the ascending aorta are normal. Mild atherosclerotic plaque(s) in the ascending aorta. The IVC is of normal diameter and collapses greater than 50% with a sniff. This suggests a low right atrial pressure of 3 mm Hg. Pericardium/ Pleura There is no pericardial effusion. There is no pleural effusion. MMode/2D Measurements & Calculations LVIDd: 4.9 cm LVOT diam: 2.1 cm LVIDs: 3.9 cm Ao root diam: 3.3 cm FS: 20.4 % asc Aorta Diam: 3.0 cm IVSd: 1.4 cm LVPWd: 1.1 cm LV swain. diameter/BSA (cm/m^2): 2.3 LV sys. diameter/BSA (cm/m^2): 1.8 LA dimension: 3.6 cm RA long axis: 4.9 cm LA A2 area: 22.8 cm2 LA A4 area: 19.5 cm2 LA length (vol): 5.4 cm LA vol: 70.0 ml LA vol index: 33.2 ml/m2 LVLs ap4: 7.6 cm LVLd ap2: 8.6 cm LVLs ap2: 7.6 cm TAPSE_phl: 2.6 cm Doppler Measurements & Calculations Ao V2 max: 160.0 cm/sec LVOT Max Leonard: 101.0 cm/sec Ao V2 mean: 120.0 cm/sec LV V1 max P.1 mmHg Ao max P.0 mmHg LV V1 VTI: 22.6 cm Ao mean P.0 mmHg ISADORA(I,D): 2.4 cm2 Ao V2 VTI: 33.0 cm ISADORA(V,D): 2.2 cm2 sev ratio: 0.68 ISADORA indexed to BSA (cm^2/m^2): 1.1 MV E max leonard: 85.3 cm/sec SV(LVOT): 78.3 ml MV A max leonard: 83.1 cm/sec MV E/A: 1.0 Med Peak E' Leonard: 4.5 cm/sec E/E' med: 18.8 Lat Peak E' Leonard: 7.1 cm/sec E/E' lat: 12.1 E/e' average: 15.4 MV dec time: 0.24 sec AV VR_phl: 0.63 MV P1/2t-pr_phl: 69.0 msec ISADORA(VTI)/BSA_phl: 1.1 Reading Physician:02:23 PM
== END ==
PROVIDERS: PCP Family Medicine; Referring Provider Family Medicine; Visit Provider Family Medicine
DX: I08.0 Rheumatic disorders of both mitral and aortic valves (principal); I70.0 Atherosclerosis of aorta; E11.65 Type 2 diabetes mellitus with hyperglycemia; Z68.30 Body mass index [BMI] 30.0-30.9, adult; I10 Essential (primary) hypertension; E78.2 Mixed hyperlipidemia; R01.1 Cardiac murmur, unspecified; E66.09 Other obesity due to excess calories
CPT/HCPCS: 93306

== ENCOUNTER 2021-12-28 12:50 | Emergency (ER) | payer OTHER, SELFPAY ==
[2021-12-28 12:57] VITALS: BP 154/70; PULSE 67; RESP 15; TEMP 36.2; O2SAT 97; BMI 28.8
--- NOTE | 2021-12-28 13:02 | DI.RAD.S_ITS ---
PROCEDURE: XR WRIST LT MIN 3V INDICATIONS: wrist injury TECHNIQUE: 4 views of the wrist were acquired. COMPARISON: None. FINDINGS: Bones: There is a possible, subtle lucency involving the dorsal aspect of the left wrist with overlying soft tissue swelling. This may represent a nondisplaced dorsal triquetral fracture. Remainder of the visualized osseous structures appear intact. No suspicious bony lesions. Scaphoid view: Scaphoid appears intact. Scapholunate interval is maintained. Soft tissues: No suspicious soft tissue calcifications. IMPRESSION: Possible nondisplaced dorsal triquetral fracture. No other definite fractures identified in the left wrist. Recommend immobilization and repeat imaging in 10-14 days. Dictated by: Igor Ngo M.D. on 12/28/2021 at 14:00 Approved by: Igor Ngo M.D. on 12/28/2021 at 14:03
[2021-12-28 15:31] VITALS: PULSE 67; O2SAT 98
[2021-12-28 15:33] VITALS: BP 159/74; PULSE 61; O2SAT 94
[2021-12-28 15:34] VITALS: BP 159/74; PULSE 60; RESP 16; O2SAT 96
--- NOTE | 2021-12-28 16:45 | ED_ITS ---
HPI - Extremity Injury (Upper) <Arielle Mera PA-C - Last Filed: 12/28/21 20:44> General Chief Complaint: Extremity Injury, Upper Stated Complaint: Fall- left wrist pain Time Seen by Provider: 12/28/21 16:41 Source: patient Mode of arrival: Ambulatory History of Present Illness HPI narrative: 66-year-old male presents with his with concern for left wrist pain after an injury sustained 2 weeks ago. Patient states that he was working on a floor and fell ?through the [place]? about 5 ft. He states that he caught himself with his wrist down front of him and also landed on his leg. He states ?my leg is fine it was a little bruised?. He states that since then he has continued to use his left wrist as normal despite the fact that it was swollen and painful. He notes it is more painful when he tries to rotate his arm and turn it, he also has pain when he has got his hand on the steering wheel and trying to drive. Has been having a tingling sensation in his hand and wrist ever since the injury. He feels the swelling has gone down, his states that she has been trying to get him in to be seen for ?2 weeks but he is stubborn?. He denies any other complaints or concerns, also denies hitting his head, neck pain or any other injuries or symptoms after the fall. He states he does have a primary care doctor, denies previous fractures to this wrist or hand. 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 He has tried wearing an Eric wrap but he says ?you can not leave it on to long because it gets uncomfortable?. Related Data Previous Rx's Medication Instructions Recorded losartan 100 mg tablet 100 mg PO DAILY #90 tabs 09/29/21 metformin 1,000 mg tablet 1,000 mg PO BID #180 tabs 09/29/21 amlodipine 5 mg tablet See Rx Instructions .Route 11/15/21 .COMPLEX #90 tabs Allergies Allergy/AdvReac Type Severity Reaction Status Date / Time No Known Drug Allergies Allergy Verified 12/28/21 12:59 Patient History <Arielle Mera PA-C - Last Filed: 12/28/21 20:44> Medical History Arthralgia Diabetes mellitus Essential hypertension Hyperlipidemia Hypertension Kidney stone on right side Left corneal abrasion Obesity Skin cancer (~2009) Surgical History History of tonsillectomy Family History Mother Age: 89 Diabetes mellitus Congestive heart failure Hyperlipidemia Hypertension CAD (coronary artery disease) Father Cancer Tobacco use Social History Smoking Status: Never smoker Smoking Status: Never smoker alcohol intake frequency: holidays/special occasions only Substance Use Type: does not use Exam <Arielle Mera PA-C - Last Filed: 12/28/21 20:44> Narrative Exam Narrative: GENERAL: 66 year old patient appears stated age. Well-developed patient, in mild distress. HEAD: Atraumatic. Normocephalic. EYES: Pupils equal round and reactive. Extraocular motions intact. No scleral icterus. No injection or drainage. ENT: Nose without bleeding, purulent drainage. Throat without erythema, ton sillar hypertrophy or exudate. Airway patent. NECK: Trachea midline. CARDIOVASCULAR: Regular rate and rhythm without murmurs, gallops, or rubs. RESPIRATORY: Clear to auscultation. Breath sounds equal bilaterally. No wheezes, rales, or rhonchi. GASTROINTESTINAL: Abdomen nondistended. EXTREMITIES: There is moderate swelling of the left wrist more prominent on the medial aspect, without edema, erythema or discoloration. There is tenderness over the distal ulna and wrist medially. There is slight reduced range of motion at the wrist, pain with supination and pronation, strength is reduced p articularly in the 3rd through 5th digits on the affected left hand. [employer] is reduced 3/5 on the left. Sensation is intact. No other edema or joint tenderness. BACK: Nontender without deformity or crepitance. No flank tenderness. NEURO: AOx3. SKIN: No rash or erythema of visible areas Initial Vital Signs Initial Vital Signs: Vital Signs Temperature 97.1 F L 12/28/21 12:57 Pulse Rate 67 12/28/21 12:57 Respiratory Rate 15 12/28/21 12:57 Blood Pressure 154/70 H 12/28/21 12:57 Pulse Oximetry 97 12/28/21 12:57 Oxygen Delivery Method 12/28/21 12:57 <Ana Zamudio DO - Last Filed: 01/01/22 13:42> Initial Vital Signs Initial Vital Signs: Vital Signs Temperature 97.1 F L 12/28/21 12:57 Pulse Rate 67 12/28/21 12:57 Respiratory Rate 15 12/28/21 12:57 Blood Pressure 154/70 H 12/28/21 12:57 Pulse Oximetry 97 12/28/21 12:57 Oxygen Delivery Method 12/28/21 12:57 Course <Arielle Mera PA-C - Last Filed: 12/28/21 20:44> Orders Ordered: ED Orders 12/28/21 13:02 XR wrist LT min 3V Stat Vital Signs Vital signs: Vital Signs - 8 hr 12/28/21 12:57 12/28/21 15:34 12/28/21 15:31 Temperature 97.1 F L Pulse Rate 67 60 67 Respiratory Rate 15 16 Blood Pressure 154/70 H 159/74 H Pulse Oximetry 97 96 98 Oxygen Delivery Method Room Air Room Air 12/28/21 15:33 12/28/21 15:33 12/28/21 17:23 Temperature Pulse Rate 61 64 Respiratory Rate 12 Blood Pressure 159/74 H 175/86 H Pulse Oximetry 94 97 Oxygen Delivery Method Room Air <Ana Zamudio DO - Last Filed: 01/01/22 13:42> Orders Ordered: ED Orders 12/28/21 13:02 XR wrist LT min 3V Stat Vital Signs Vital signs: Vital Signs - 8 hr 12/28/21 12:57 12/28/21 15:34 12/28/21 15:31 Temperature 97.1 F L Pulse Rate 67 60 67 Respiratory Rate 15 16 Blood Pressure 154/70 H 159/74 H Pulse Oximetry 97 96 98 Oxygen Delivery Method Room Air Room Air 12/28/21 15:33 12/28/21 15:33 12/28/21 17:23 Temperature Pulse Rate 61 64 Respiratory Rate 12 Blood Pressure 159/74 H 175/86 H Pulse Oximetry 94 97 Oxygen Delivery Method Room Air MDM - Extremity Injury (Upper) <SADIQ Carter Last Filed: 12/28/21 20:44> Imaging Data Extremity x-ray #1: My Impression: I have reviewed the x-ray and agree with radiologist's interpretation. Also reviewed the imaging with Dr. Zamudio, attending physician. Radiologist's Impression: [address] [address] XRay Report Signed Patient: Roger Briones MR#: [id number] : 1955 Acct:[id number] Age/Sex: 66 / M Date of Service: 12/28/21 Loc: ED Accession Number: [id number] ?? Procedure: XR wrist LT min 3V Ordering Provider: Ana Zamudio D.O. PROCEDURE:? XR WRIST LT MIN 3V ? INDICATIONS: wrist injury ? TECHNIQUE:? 4 views of the wrist were acquired.? ? COMPARISON:? None. ? FINDINGS:? ? Bones:? There is a possible, subtle lucency involving the dorsal aspect of the left wrist with overlying soft tissue swelling.? This may represent a nondisplaced dorsal triquetral fracture. Remainder of the visualized osseous structures appear intact.? No suspicious bony lesions.? ? Scaphoid view:? Scaphoid appears intact. Scapholunate interval is maintained. ? Soft tissues:? No suspicious soft tissue calcifications.? ? IMPRESSION:? Possible nondisplaced dorsal triquetral fracture.? No other definite fractures identified in the left wrist.? Recommend immobilization and repeat imaging in 10-14 days. ? ? Dictated by: Igor Ngo M.D. on 12/28/2021 at 14:00 ? ? Approved by: Igor Ngo M.D. on 12/28/2021 at 14:03?? [facility] Narrative Medical decision making narrative: 66-year-old male presents with his with concern for possible wrist injury/fracture. He fell about 5 ft through some [place] 2 weeks ago and injured his left wrist, other than sometimes wearing Eric wrap he has had no treatments or evaluation to date. His exam is consistent with possible fracture, poorly healing sprain/strain. X-ray suggests a triquetral fracture. Patient denies other injury or persistent pain associated with his fall. Also denied hitting his head or neck pain with the fall also denied loss of consciousness. Do feel the patient may benefit from physical therapy given his reduced range of motion and strength, however he declines referral for this today and prefers to follow- up with his PCP. I think this is reasonable however counseled him that he may have long-term sequela associated with this injury. Advised him repeat x-rays are advisable to evaluate the healing process in the next 7-10 days. Patient is placed in a removable Velcro splint, counseled regarding supportive care for his injury, reducing use, and monitoring for persistent, new or worsening symptoms. Return precautions provided, follow-up plan discussed, all questions answered. Discharge Plan Departure Patient Disposition: Home Clinical Impression: Fracture of triquetral bone of left wrist, Pain and swelling of left wrist Instructions: DI for Wrist Fracture Activity Restrictions/Additional Instructions: Thank you for letting us be part of your care today in the emergency department. Unfortunately you do have a fracture based on the x-rays today of the triquetral bone in your left wrist. This does not appear to need surgical repair, and you are a few weeks out from the injury. I recommend that you wear the removable brace as discussed you should wear this as much as possible to provide support and compression for your injury. You should also begin minimizing use of this hand to allow some time to heal. We discussed possibly doing a referral for physical therapy or orthopedics, you prefer to follow up with your primary care provider and I think this is reasonable. You may have a slow healing time and or some long-term symptoms associated with her injury because you continue to use it after the fracture occurred. I recommend Tylenol or ibuprofen for pain as needed, please work on getting in to see year primary care provider within a few weeks for reassessment. You may want to have a repeat x-ray in 1-2 weeks to evaluate the healing process. Prescriptions: No Action amlodipine 5 mg tablet See Rx Instructions .ROUTE .COMPLEX Qty: 90 0RF Dose Instruction: TAKE ONE TABLET BY MOUTH ONE TIME DAILY Rx Instructions: TAKE ONE TABLET BY MOUTH ONE TIME DAILY metformin 1,000 mg tablet 1,000 mg PO BID Qty: 180 1RF losartan 100 mg tablet 100 mg PO DAILY Qty: 90 0RF Referrals: Roger Medeiros MD [Primary Care Provider] - Visit Report Forms: Patient Portal/API <Ana Zamudio DO - Last Filed: 01/01/22 13:42> Cosign ED Attending Cosignature Attestation: I was immediately available in the department for consultation. Documentation has been reviewed. I agree with assessment and plan.
[2021-12-28 17:23] VITALS: BP 175/86; PULSE 64; RESP 12; O2SAT 97
== END 2021-12-28 17:24 | disposition home or self-care (01) ==
PROVIDERS: Emergency Provider Student in an Organized Health Care Education/Training Program; PCP Family Medicine
DX: S62.102A Fracture of unspecified carpal bone, left wrist, initial encounter for closed fracture (principal); M25.532 Pain in left wrist; W19.XXXA Unspecified fall, initial encounter
CPT/HCPCS: 73110; 99283

== ENCOUNTER → 2022-02-02 10:08 | Outpatient (CLI) | payer OTHER, SELFPAY ==
--- NOTE | 2022-02-02 | DI.NM.S_ITS ---
PROCEDURE: NM ROSA PERF SPECT REST & STR Rest and exercise myocardial perfusion SPECT with gated imaging and ejection fraction RADIOPHARMACEUTICAL: 26.2 mCi Tc-99m sestamibi IV at rest and 25.7 mCi Tc-99m sestamibi IV at peak exercise. A two day-protocol was performed. INDICATIONS: Atherosclerotic heart disease TECHNIQUE: Radiopharmaceutical was injected at peak stress test, and also at rest. SPECT images were obtained. SPECT myocardial perfusion images were displayed in short axis, horizontal long axis, and vertical long axis views. Gated images were reviewed using [employer] software. COMPARISON: None. CARDIAC STRESS: A standard Carlin treadmill exercise tolerance test was performed by the patient under the supervision of an attending staff. The patient exercised for 9 minutes and 2 seconds; functional aerobic impairment (CHACHA) is -18%. Hemodynamic data: There is normal blood pressure and heart rate response to exercise stress. Patient achieved 85% of maximum predicted heart rate at peak exercise. Symptoms: Patient denied chest pain during exercise. EKG: Baseline mild horizontal ST depressions in the inferior and anterolateral leads that worsen to moderate downsloping ST depressions with exercise. Rare PVCs. FINDINGS: Raw data: There is good myocardial labeling by radiotracer. No significant motion artifacts. Left ventricle function: Gated images show mild hypokinesis of the basal inferior wall. No transient ischemic dilation; TID is 1.24 (normal less than 1.3). The left ventricle resting end-diastolic volume is 160 mL. Left ventricle stress ejection fraction is 49%; normal values are above 45%. Myocardial perfusion: There is a fixed severe inferior wall defect. There is a partially severe reversible defect in the inferolateral and lateral wall that is consistent with prior non-transmural infarction and significant josette-infarct ischemia. SSS 23, SRS 8. IMPRESSION: Abnormal nuclear stress test consistent with prior infarction and significant josette-infarct ischemia. 1) There is a fixed severe inferior wall defect consistent with prior infarction. There is a partially severe reversible defect in the inferolateral and lateral wall that is consistent with prior non-transmural infarction and significant josette-infarct ischemia. SSS 23, SRS 8. 2) Enlarged left ventricle with borderline reduced systolic function (EF 49% post stress). Mild hypokinesis of the basal inferior wall. 3) Baseline mild horizontal ST depressions in the inferior and anterolateral leads that worsen to moderate downsloping ST depressions with exercise. 4) No angina during the study. 5) Good exercise tolerance (10.1 METs, CHACHA -18%). 85% of maximum predicted heart rate achieved. Appropriate BP response to exercise. 6) No prior nuclear stress test available for comparison. Dictated by: Seng Gaona MD on 02/07/2022 at 12:46 Approved by: Seng Gaona MD on 02/07/2022 at 12:53
[2022-02-02 13:07] LABS: COVID19 -Nasal RAPID Negative (Negative)
== END ==
PROVIDERS: PCP Family Medicine; Referring Provider Internal Medicine Cardiovascular Disease; Visit Provider Internal Medicine Cardiovascular Disease
DX: I25.10 Atherosclerotic heart disease of native coronary artery without angina pectoris (principal); R93.1 Abnormal findings on diagnostic imaging of heart and coronary circulation; I51.7 Cardiomegaly
CPT/HCPCS: 78452; 87635; 93017; A9502

== ENCOUNTER → 2022-02-21 07:13 | Outpatient (CLI) | payer OTHER, SELFPAY ==
[2022-02-21 08:40] LABS: Add Manual Diff / Slide Review NO; Basophils Absolute Auto 100 /uL (0-100); Basophils Percent Auto 1.4 % (0-2); Eosinophils Absolute Auto 400 /uL (0-450); Eosinophils Percent Auto 6.4 % (2-4); Hematocrit 38.7 % (41-53); Hemoglobin 13.8 g/dL (13.5-17.5); Lymphocytes Absolute Auto 1600 /uL (1100-4500); Lymphocytes Percent Auto 22.5 % (25-40); Mean Corpuscular HGB Conc 35.6 % (30-36); Mean Corpuscular Hemoglobin 30.4 PG (26-34); Mean Corpuscular Volume 85.5 fL (80-100); Monocytes Absolute Auto 500 /uL (0-900); Monocytes Percent Auto 6.8 % (3-14); Neutrophils Absolute Auto 4400 /uL (1500-7000); Neutrophils Percent Auto 62.9 % (50-75); Platelet Count 254 X10^3/uL (150-400); Red Blood Cell Count 4.53 X10^6/uL (4.5-5.9)
[2022-02-21 08:49] LABS: Hemoglobin A1C% w Est Avg Glu 6.7 % (4.0-6.0)
[2022-02-21 09:18] LABS: BUN Creatinine Ratio 23.9 (6-22); Blood Urea Nitrogen 21 mg/dL (9-20); Calcium 9.2 mg/dL (8.4-10.2); Carbon Dioxide 30 mmol/L (22-32); Chloride 99 mmol/L (98-107); Cholesterol 88 mg/dL (140-199); Estimated Glomerular Filt Rate > 60 mL/min (>60); Glucose 129 mg/dL (80-110); HDL Cholesterol 31 mg/dL (40-60); HEMOLYSIS < 15 (0-50); LDL Cholesterol Calculated 43 mg/dL (<100); Potassium 4.5 mmol/L (3.4-5.1); Sodium 138 mmol/L (137-145); Triglycerides 72 mg/dL (35-150)
== END ==
PROVIDERS: PCP Family Medicine; Referring Provider Internal Medicine Cardiovascular Disease; Visit Provider Internal Medicine Cardiovascular Disease
DX: I10 Essential (primary) hypertension (principal); E78.2 Mixed hyperlipidemia; R73.03 Prediabetes
CPT/HCPCS: 36415; 80048; 80061; 83036; 85025

== ENCOUNTER → 2023-06-18 07:41 | Outpatient (CLI) | payer MEDICARE, SELFPAY ==
[2023-06-18 08:20] LABS: Add Manual Diff / Slide Review NO; Basophils Absolute Auto 100 /uL (0-100); Basophils Percent Auto 0.7 % (0-2); Eosinophils Absolute Auto 400 /uL (0-450); Eosinophils Percent Auto 5.1 % (2-4); Hematocrit 41.5 % (41-53); Hemoglobin 14.6 g/dL (13.5-17.5); Lymphocytes Absolute Auto 2100 /uL (1100-4500); Lymphocytes Percent Auto 26.6 % (25-40); Mean Corpuscular HGB Conc 35.2 % (30-36); Mean Corpuscular Hemoglobin 30.5 PG (26-34); Mean Corpuscular Volume 86.5 fL (80-100); Monocytes Absolute Auto 600 /uL (0-900); Monocytes Percent Auto 8.2 % (3-14); Neutrophils Absolute Auto 4700 /uL (1500-7000); Neutrophils Percent Auto 59.4 % (50-75); Platelet Count 272 X10^3/uL (150-400); White Blood Cell Count 7.9 X10^3/uL (4.5-11.0)
[2023-06-18 08:46] LABS: BUN Creatinine Ratio 28.4 (6-22); Blood Urea Nitrogen 25 mg/dL (9-20); Calcium 9.6 mg/dL (8.4-10.2); Carbon Dioxide 31 mmol/L (22-32); Chloride 97 mmol/L (98-107); Cholesterol 110 mg/dL (140-199); Estimated Glomerular Filt Rate > 60 mL/min (>60); Glucose 142 mg/dL (80-110); HDL Cholesterol 36 mg/dL (40-60); HEMOLYSIS < 15 (0-50); LDL Cholesterol Calculated 42 mg/dL (<100); Potassium 4.5 mmol/L (3.4-5.1); Sodium 135 mmol/L (137-145); Triglycerides 162 mg/dL (35-150)
== END ==
LOC: LAB 07:43
PROVIDERS: PCP Family Medicine; Referring Provider Internal Medicine Cardiovascular Disease; Visit Provider Internal Medicine Cardiovascular Disease
DX: I10 Essential (primary) hypertension (principal); E78.2 Mixed hyperlipidemia
CPT/HCPCS: 36415; 80048; 80061; 85025

== ENCOUNTER → 2024-09-10 07:26 | Outpatient (CLI) | payer MEDICARE, SELFPAY ==
[2024-09-10 08:36] LABS: Add Manual Diff / Slide Review NO; Basophils Absolute Auto 100 /uL (0-100); Basophils Percent Auto 1.3 % (0-2); Eosinophils Absolute Auto 300 /uL (0-450); Eosinophils Percent Auto 4.3 % (2-4); Hematocrit 42.4 % (41-53); Hemoglobin 14.8 g/dL (13.5-17.5); Lymphocytes Absolute Auto 1400 /uL (1100-4500); Lymphocytes Percent Auto 18.2 % (25-40); Mean Corpuscular HGB Conc 34.8 % (30-36); Mean Corpuscular Hemoglobin 30.7 PG (26-34); Mean Corpuscular Volume 88.2 fL (80-100); Monocytes Absolute Auto 500 /uL (0-900); Monocytes Percent Auto 6.3 % (3-14); Neutrophils Absolute Auto 5300 /uL (1500-7000); Neutrophils Percent Auto 69.9 % (50-75); Platelet Count 279 X10^3/uL (150-400); Red Cell Distribution Width 13.3 % (11.6-14.8); White Blood Cell Count 7.5 X10^3/uL (4.5-11.0)
[2024-09-10 08:46] LABS: Hemoglobin A1C% w Est Avg Glu 6.5 % (4.0-6.0)
[2024-09-10 08:55] LABS: Creatinine Urine Random 284.99 mg/dL
[2024-09-10 08:55] LABS: Alanine Aminotransferase 24 IU/L (<50); Albumin 4.5 g/dL (3.5-5.0); Albumin Globulin Ratio 1.6 (1.0-2.8); Alkaline Phosphatase 59 U/L (38-126); Aspartate Aminotransferase 28 IU/L (17-59); BUN Creatinine Ratio 22.3 (6-22); Bilirubin Total 1.3 mg/dL (0.2-1.3); Blood Urea Nitrogen 25 mg/dL (9-20); Calcium 9.5 mg/dL (8.4-10.2); Carbon Dioxide 29 mmol/L (22-32); Chloride 99 mmol/L (98-107); Cholesterol 102 mg/dL (140-199); Estimated Glomerular Filt Rate > 60 mL/min (>60); Globulin 2.9 g/dL (1.7-4.1); Glucose 166 mg/dL (80-110); HDL Cholesterol 35 mg/dL (40-60); HEMOLYSIS < 15 (0-50); LDL Cholesterol Calculated 48 mg/dL (<100); Potassium 4.8 mmol/L (3.4-5.1); Sodium 136 mmol/L (137-145); Total Protein 7.4 g/dL (6.3-8.2); Triglycerides 97 mg/dL (35-150)
[2024-09-10 09:00] LABS: Microalbumin Urine Random 11.1 mg/dL (0-1.6)
[2024-09-10 09:25] LABS: Prostate Specific Antigen Scrn 2.07 ng/mL (0.1-4.0)
[2024-09-10 09:27] LABS: TSH w/ Reflex to FT4 1.58 uIU/mL (0.47-4.68)
[2024-09-11 03:39] LABS: Apolipoprotein B 55 mg/dL (<90)
== END ==
PROVIDERS: PCP Family Medicine; Referring Provider Family Medicine; Visit Provider Family Medicine
DX: E11.9 Type 2 diabetes mellitus without complications (principal); Z12.5 Encounter for screening for malignant neoplasm of prostate; I10 Essential (primary) hypertension; E78.5 Hyperlipidemia, unspecified; Z12.11 Encounter for screening for malignant neoplasm of colon; Z12.12 Encounter for screening for malignant neoplasm of rectum
CPT/HCPCS: 36415; 80053; 80061; 82043; 82172; 82570; 83036; 84443; 85025; G0103